=== PATIENT | female | born 1940 | race Caucasian/White ===

== ENCOUNTER 2019-10-11 03:25 | Inpatient (IN) ==
--- NOTE | 2019-10-09 16:14 | EKG Report ---
Test Performed on : 10/09/2019 3:32:47 PM Test Reason : PAT Blood Pressure : / mmHG Vent. Rate : 077 BPM Atrial Rate : 077 BPM P-R Int : 154 ms QRS Dur : 178 ms QT Int : 446 ms P-R-T Axes : 000 -86 078 degrees QTc Int : 504 ms AV dual-paced rhythm with premature atrial complexes. with aberrant conduction. Abnormal ECG No previous ECGs available Unconfirmed Result
[2019-10-09 16:25] LABS: URINE SOURCE CLEAN CATCH
[2019-10-09 16:45] LABS: BASO# 0.02 X1000 (0.0-0.2); BASO% 0.3 % (0.0-0.8); BILIRUBIN URINE NEGATIVE (NEGATIVE); BLOOD URINE NEGATIVE (NEGATIVE); COLOR YELLOW; EOS# 0.13 X1000 (0.0-0.7); EOS% 2.2 % (0.0-10.0); GLUCOSE URINE NEGATIVE (NEGATIVE); HEMATOCRIT 42.5 % (37.0-47.0); HEMOGLOBIN 13.4 g/dL (12.0-16.0); IMM GRAN# 0.02 X1000 (0.0-0.04); IMM GRAN% 0.3 % (0.0-0.5); KETONE URINE TRACE mg/dL (NEGATIVE); LEUKOCYTES URINE MODERATE (NEGATIVE); LYMPH# 2.32 X1000 (1.2-3.4); LYMPH% 39.4 % (20.5-51.1); MCH 27.8 PG (27-31); MCHC 31.5 g/dL (33-37); MCV 88.2 FL (81-99); MONO# 0.54 X1000 (0.11-0.59); MONO% 9.2 % (1.7-9.3); MPV 11.9 FL (7.4-10.4); NEUT# 2.86 X1000 (1.4-6.5); NEUT% 48.6 % (42.2-75.2); NITRITE URINE NEGATIVE (NEGATIVE); PH URINE 5.5; PLT 176 X1000 (130-400); PROTEIN URINE TRACE mg/dL (NEGATIVE); RBC 4.82 XMIL (4.2-5.4); RDW 14.9 % (11.5-14.5); TURBIDITY URINE CLEAR (CLEAR); UROBILINOGEN URINE 3 mg/dL (NORMAL); WBC 5.89 X1000 (4.8-10.8)
[2019-10-09 16:47] LABS: UR EPITHELIAL CELLS <10 /HPF (<10); URINE BACTERIA NEGATIVE /HPF; URINE RBC <10 /HPF (<10)
[2019-10-09 16:52] LABS: HEMOGLOBIN A1C 5.9 % (4.8-6.0); INR 1.01; PROTIME 13.4 Seconds (11.0-16.0); PTT 31.3 Seconds (22.3-41.8)
[2019-10-09 16:55] LABS: AGAP 11; BUN 18 mg/dL (8-22); CALCIUM 9.8 mg/dL (8.8-10.2); CHLORIDE 105 mmol/L (98-107); COSMO 286; CREATININE 0.9 mg/dL (0.5-0.9); ESTIMATED GFR > 60; GLUCOSE 82 mg/dL (70-104); POTASSIUM 4.5 mmol/L (3.5-5.1); SODIUM 143 mmol/L (136-145); TCO2 27 mmol/L (25-35)
[2019-10-11] MEDS ORDERED: PEPCID ONE (07:13)
[2019-10-11] MEDS ORDERED: REGLAN ONE (07:13)
[2019-10-11] MEDS ORDERED: COLACE ONE (07:13)
[2019-10-11] MEDS ORDERED: KEFZOL 1 GM/D5W 2 GM/100 ML IVPB ONE (07:14)
[2019-10-11] MEDS ORDERED: LR 1,000 ML ONE (07:14)
[2019-10-11] MEDS ORDERED: CELEBREX ONE (07:14)
[2019-10-11] MEDS ORDERED: LYRICA ONE (07:14)
[2019-10-11] MEDS ORDERED: TORADOL ONE (09:17)
[2019-10-11] MEDS ORDERED: MARCAINE 0.25% PF ONE (09:17)
[2019-10-11] MEDS ORDERED: ROBINUL ONE ×2 (09:17→10:50)
[2019-10-11] MEDS ORDERED: ZOFRAN ONE (09:17)
[2019-10-11] MEDS ORDERED: DURAMORPH ONE (09:17)
[2019-10-11] MEDS ORDERED: XYLOCAINE-MPF 2% ONE (09:17)
[2019-10-11] MEDS ORDERED: SODIUM CHLORIDE 0.9% ONE (09:17)
[2019-10-11] MEDS ORDERED: CYKLOKAPRON 1,000 MG/NS 1,000 MG/100 ML IVPB ONE (09:17)
[2019-10-11] MEDS ORDERED: EXPAREL 1.3% ONE (09:17)
[2019-10-11] MEDS ORDERED: DECADRON ONE (09:17)
[2019-10-11] MEDS ORDERED: DIPRIVAN 1% ONE (09:18)
[2019-10-11] MEDS ORDERED: FENTANYL ONE (09:18)
[2019-10-11] MEDS ORDERED: QUELICIN (DOSE) ONE (09:18)
[2019-10-11] MEDS ORDERED: ZEMURON ONE (10:12)
[2019-10-11] MEDS ORDERED: LABETALOL (DOSE) ONE (10:37)
[2019-10-11 10:40] LABS: URINE SOURCE CATH
[2019-10-11 10:49] LABS: BILIRUBIN URINE NEGATIVE (NEGATIVE); BLOOD URINE NEGATIVE (NEGATIVE); COLOR YELLOW; GLUCOSE URINE NEGATIVE (NEGATIVE); KETONE URINE NEGATIVE (NEGATIVE); LEUKOCYTES URINE NEGATIVE (NEGATIVE); NITRITE URINE NEGATIVE (NEGATIVE); PROTEIN URINE NEGATIVE (NEGATIVE); SP GRAVITY URINE 1.019; TURBIDITY URINE CLEAR (CLEAR); UR EPITHELIAL CELLS <10 /HPF (<10); URINE BACTERIA NEGATIVE /HPF; URINE RBC <10 /HPF (<10); URINE WBC <10 /HPF (<10); UROBILINOGEN URINE NORMAL (NORMAL)
[2019-10-11] MEDS ORDERED: NEOSTIGMINE ONE (10:50)
[2019-10-11] MEDS ORDERED: OFIRMEV 1000 MG/ISOTONIC SOLN 1,000 MG/100 ML BOTTLE ONE (11:02)
[2019-10-11] MEDS: MORPHINE ONE ×2 (11:50→12:00)
[2019-10-11] MEDS ORDERED: NS 1,000 ML ONE (11:56)
[2019-10-11] MEDS ORDERED: OXY IR ONE (12:06)
[2019-10-11] MEDS ORDERED: MORPHINE ONE ×2 (12:06→12:28)
--- NOTE | 2019-10-11 12:48 | Diag Imaging Result Doc PS360 ---
SHOULDER 1 VIEW LEFT - 10/11/2019 INDICATION: left TSA TECHNIQUE: COMPARISON: None FINDINGS: There has been left total shoulder arthroplasty. Alignment is anatomic. No hardware fracture or loosening. There is a left-sided pacemaker in good position. IMPRESSION: No complication. Electronically signed by Luisito Wylie 10/11/2019 12:46 PM
[2019-10-11] MEDS ORDERED: FLU VACCINE IM ONE (13:05)
[2019-10-11] MEDS ORDERED: MORPHINE IV PRN ×3 (13:15)
[2019-10-11] MEDS ORDERED: OXY IR PO PRN ×2 (13:15)
[2019-10-11] MEDS ORDERED: PNEUMOVAX 23 IM ONE (13:45)
[2019-10-11] MEDS ORDERED: ALDACTAZIDE 25/25 PO PRN (13:54)
[2019-10-11] MEDS ORDERED: CYKLOKAPRON 1,000 MG in NS 100 ML IV ONE (16:00)
[2019-10-11] MEDS: TYLENOL PO SCH (17:12)
[2019-10-11] MEDS: KEFZOL 2 GM/D5W 2 GM/50 ML IVPB IV SCH (17:12)
--- NOTE | 2019-10-11 17:30 | OPERATIVE NOTE ---
PROCEDURE DATE: 10/11/2019 PREOPERATIVE DIAGNOSIS: Left glenohumeral arthritis. POSTOPERATIVE DIAGNOSIS: Left glenohumeral arthritis. PROCEDURE: Left reverse shoulder arthroplasty, DePuy Delta Xtend size 12, press-fit stem, a 38 +6 humeral cup, and a 38 eccentric glenosphere, a 38+ 2 mm lateralized eccentric glenosphere and a standard metaglene. SURGEON: Solis Carlson MD. SHOE PARTS CASER: KAZ Lerma, who was necessary for proper retraction and manipulation of the extremity during the case. SECOND MARKETING AREA MANAGER: Farrukh Sibley RN. ANESTHESIA: General. INTRAVENOUS FLUIDS: 1400 mL lactated Ringer's. ESTIMATED BLOOD LOSS: 200 mL. COMPLICATIONS: None. INDICATION: A 79-year-old female with a chronic history of worsening pain and discomfort of the left shoulder. X-rays revealed significant arthritis and recommendation to proceed with left reverse shoulder arthroplasty was offered. Risks and benefits of surgery were explained, including the risks of anesthesia, , bleeding, infection, failure to relieve pain, postoperative stiffness, nerve injury, blood clots, and other imponderables. All questions were answered. The patient and family wished to proceed with surgery. DETAILS OF OPERATION: The patient was taken to the operating room and placed supine on the operating table. Once adequate anesthesia was obtained, patient was placed in a semi-[place]aj[place], beach-chair position. The left shoulder was subsequently prepped and draped in the usual sterile fashion. Standard deltopectoral incision was made with a skin knife. Hemostasis was obtained using electrocautery. The deltopectoral interval was then developed. Retractors were then placed. The clavipectoral fascia was elevated and Mendez retractor was placed deep to the conjoint tendon. The subscapularis tendon was then identified and stay sutures placed. Approximately 1 cm medial to the insertion was released. Attention was then turned to the shoulder. It was then dislocated anteriorly. Further release of the posterior-superior aspect of the rotator cuff was performed. After this had been performed, the starting reamer was then passed in the intramedullary canal. Sequential reaming was conducted up to a size 12. Intramedullary guide with a proximal humeral cutting block was pinned in position in approximately 15-20 degrees of retroversion. The humeral head was then resected. A protective disk was then placed. Attention was then turned to the glenoid and circumferential dissection was performed with a deep knife. A guide was then placed in position. Guidepin was then placed. Reaming was then conducted. A starting reamer was then passed. The intramedullary guidepin was then removed. The wound was copiously irrigated with antibiotic pulsatile lavage. A standard metaglene was then impacted in position. Two locking screws and 2 nonlocking screws were placed. Appeared to have good fixation. The wound was copiously irrigated once again. The 38 +2 mm lateralized eccentric glenosphere was then placed with the eccentricity placed inferiorly. Attention was then turned to the proximal humerus. Intramedullary guide was placed in position and proximal humerus was then reamed. Copious irrigation was then performed once again with antibiotic pulsatile lavage. A size 12 Delta Xtend press-fit stem was impacted in approximately 15-20 degrees of retroversion. The trial cup, size 38 +6 humeral cup, appeared to be the correct size. Trial cup was removed. The wound was copiously irrigated once again. A 38 +6 humeral cup was then placed. The shoulder was reduced, carried through a range of motion, had excellent stability and range of motion. Exparel was then placed in deep soft tissue. The wound was copiously with antibiotic pulsatile lavage. A #2 FiberWire was then used to repair the subscapularis tendon. Remaining Exparel was placed in deep soft tissue as well subcutaneous tissue. Irrigation was performed once again. A 2- 0 Vicryl was then used to repair subcutaneous tissue, followed by running 2-0 Prolene. Benzoin and Steri-Strips were applied. Adaptic, sterile 4 x 4, ABD pad, and tape were applied to the right shoulder, followed by shoulder immobilizer. All counts were correct. Patient tolerated the procedure well, transferred to the recovery room in stable condition. cc: Solis Carlson MD
[2019-10-11] MEDS ORDERED: HALL'S COUGH LOZENGE MT PRN (21:44)
[2019-10-11] MEDS: COLACE PO SCH (21:47)
[2019-10-11] MEDS: PERIDEX MT SCH (21:47)
[2019-10-11] MEDS: XALATAN 0.005% OPH SOLN BOTH EYES SCH (21:47)
[2019-10-11] MEDS: NS 1,000 ML IV SCH (21:48)
[2019-10-12] MEDS: KEFZOL 2 GM/D5W 2 GM/50 ML IVPB IV SCH (02:32)
[2019-10-12] MEDS: NS 1,000 ML IV SCH (03:00)
[2019-10-12] MEDS: OXY IR PO PRN ×5 (06:05→23:32)
[2019-10-12] MEDS: TYLENOL PO SCH ×5 (06:08→23:33)
[2019-10-12 06:46] LABS: HEMATOCRIT 36.6 % (37.0-47.0); HEMOGLOBIN 11.5 g/dL (12.0-16.0)
[2019-10-12 07:12] LABS: AGAP 13; BUN 16 mg/dL (8-22); CALCIUM 9.2 mg/dL (8.8-10.2); CHLORIDE 106 mmol/L (98-107); COSMO 290; CREATININE 0.9 mg/dL (0.5-0.9); ESTIMATED GFR > 60; GLUCOSE 126 mg/dL (70-104); POTASSIUM 5.3 mmol/L (3.5-5.1); SODIUM 144 mmol/L (136-145); TCO2 25 mmol/L (25-35)
[2019-10-12] MEDS: PERIDEX MT SCH ×2 (08:33→20:07)
[2019-10-12] MEDS: PRINIVIL PO SCH (08:35)
[2019-10-12] MEDS: COLACE PO SCH ×2 (08:35→20:07)
--- NOTE | 2019-10-12 12:08 | ORTHOPAEDICS PROGRESS NOTE ---
DATE: 10/12/2019 SUBJECTIVE: The patient is a pleasant 79-year-old female who is 1 day status post left reverse total shoulder arthroplasty. Patient is currently resting comfortably. She is complaining of a mild sore throat and some shoulder discomfort this morning. OBJECTIVE: On physical exam, the patient's left upper extremity dressing is intact. 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 Good capillary refill distally. LABS: Labs are pending. IMPRESSION: Postoperative day #1 status post left reverse total shoulder arthroplasty. PLAN: At this point, will begin mobilization with physical therapy. change her dressing and discontinue her Andrade and Hep-Lock her IV this morning. We will consult Scale Model Maker for discharge planning for evaluation for inpatient rehabilitation. All questions were answered. cc: Solis Carlson MD
[2019-10-12] MEDS: CRESTOR PO SCH (20:07)
[2019-10-12] MEDS: XALATAN 0.005% OPH SOLN BOTH EYES SCH (20:22)
[2019-10-13] MEDS: OXY IR PO PRN ×5 (03:15→20:32)
[2019-10-13 06:44] LABS: HEMATOCRIT 35.6 % (37.0-47.0); HEMOGLOBIN 11.3 g/dL (12.0-16.0)
[2019-10-13] MEDS: TYLENOL PO SCH ×3 (06:50→18:49)
[2019-10-13] MEDS: COLACE PO SCH ×2 (10:19→20:32)
[2019-10-13] MEDS: PERIDEX MT SCH ×2 (10:19→20:33)
[2019-10-13] MEDS: PRINIVIL PO SCH (10:19)
--- NOTE | 2019-10-13 12:56 | ORTHOPAEDICS PROGRESS NOTE ---
DATE: 10/13/2019 SUBJECTIVE: The patient is a 79-year-old female who is 2 days status post left reverse shoulder arthroplasty. Patient complains of some pain and discomfort in the left shoulder this morning. PHYSICAL EXAMINATION: Left upper extremity: Her wound looks good. There are no signs or symptoms of infection. She is neurovascularly distally. Able to flex all her fingers. 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 LABS: Pending. IMPRESSION: Postoperative day #1 status post left reverse shoulder arthroplasty. PLAN: At this point, patient will continue with physical therapy and await discharge planning for rehab. cc: Solis Carlson MD
[2019-10-13] MEDS: XALATAN 0.005% OPH SOLN BOTH EYES SCH (20:32)
[2019-10-13] MEDS: ZOFRAN PO PRN (20:32)
[2019-10-14] MEDS: TYLENOL PO SCH ×4 (00:57→17:32)
[2019-10-14 07:23] LABS: HEMATOCRIT 35.3 % (37.0-47.0)
[2019-10-14] MEDS: COLACE PO SCH ×2 (08:00→22:10)
[2019-10-14] MEDS: PERIDEX MT SCH ×2 (08:00→22:10)
[2019-10-14] MEDS: PRINIVIL PO SCH (08:00)
--- NOTE | 2019-10-14 15:53 | ORTHOPAEDICS PROGRESS NOTE ---
DATE: 10/14/2019 SUBJECTIVE: Ms. Trinh lying in bed this morning. She is feeling really well. Not really complaining of a lot of pain. She has been up walking. OBJECTIVE: Left upper extremity exam, her dressing is clean, dry, and intact. All her hand intrinsics are intact. ASSESSMENT: Status post left total shoulder replacement. PLAN: I think Ms. Trinh is doing great. She is up moving. She is planning on going to rehab on Wednesday. We will continue to follow over the weekend. cc: MD Solis Mccormack MD
[2019-10-14] MEDS: XALATAN 0.005% OPH SOLN BOTH EYES SCH (22:09)
[2019-10-14] MEDS: OXY IR PO PRN (22:09)
[2019-10-14] MEDS: CRESTOR PO SCH (22:10)
[2019-10-15] MEDS: TYLENOL PO SCH ×5 (00:13→17:32)
[2019-10-15] MEDS: OXY IR PO PRN ×2 (02:12→16:11)
[2019-10-15] MEDS: PERIDEX MT SCH (08:22)
[2019-10-15] MEDS: PRINIVIL PO SCH (08:22)
[2019-10-15] MEDS: COLACE PO SCH (08:22)
[2019-10-15] MEDS ORDERED: MILK OF MAGNESIA PO PRN (09:08)
[2019-10-15] MEDS: ZOFRAN PO PRN (12:00)
--- NOTE | 2019-10-15 14:33 | ORTHOPAEDICS PROGRESS NOTE ---
DATE: 10/15/2019 SUBJECTIVE: Ms Trinh sitting up in bedside chair this morning, overall feeling well from a pain standpoint. She has had a little problems moving her bowels. OBJECTIVE: Left upper extremity exam her dressing is clean, dry, and intact. She remains neurovascularly intact left upper extremity. ASSESSMENT: Status post left reverse total shoulder arthroplasty. PLAN: Ms. Trinh is doing great from a shoulder standpoint. Unfortunately her bowels have not moved well. She is passing gas from below. We are going to get her on a bowel regime today. I discussed with her about plenty of hydration and walking around to help stimulate her bowels and will continue to monitor. cc: MD Solis Mccormack MD MTDD
[2019-10-16] MEDS: COLACE PO SCH ×2 (00:31→09:58)
[2019-10-16] MEDS: PERIDEX MT SCH ×2 (00:32→09:58)
[2019-10-16] MEDS: TYLENOL PO SCH ×2 (00:32→05:16)
[2019-10-16] MEDS: XALATAN 0.005% OPH SOLN BOTH EYES SCH (00:32)
[2019-10-16 07:25] VITALS: BP 120/73
--- NOTE | 2019-10-16 09:06 | DISCHARGE SUMMARY ---
ADMISSION DATE: 10/11/2019 DISCHARGE DATE: 10/16/2019 ADMITTING DIAGNOSIS: Left shoulder osteoarthritis. DISCHARGE DIAGNOSIS: Left shoulder osteoarthritis, status post left reverse total shoulder arthroplasty. PROCEDURES: On 10/11/2019, Dr. Carlson performed a left reverse total shoulder arthroplasty. HOSPITAL COURSE: Ms. Trinh is a 79-year-old female with a past medical history of high blood pressure, high cholesterol, and a pacemaker. She has had worsening pain and discomfort with her left shoulder for some time now. X-rays revealed significant degenerative changes and a large osteophyte off the humeral head. Dr. Carlson discussed doing a left reverse total shoulder arthroplasty, and Ms. Trinh wished to proceed at this time. She was taken to the operating room, where satisfactory anesthesia was obtained. She tolerated the procedure well, and was transferred to the recovery room. After satisfactory recovery, she was transferred to [address] [place] [address]. She has had an uneventful postoperative course. She did have some difficulty with her bowels moving, but this has since resolved. She says that she has been working with Physical Therapy on range of motion exercises of her elbow, wrist, and hands. She has had only mild discomfort in her left shoulder. Her pain has been well controlled here. Ms. Trinh does live by herself, and has no one to transport her to outpatient physical therapy. Because of this, it was decided that she would be best suited for an inpatient rehab stay. She has opted to be admitted to [facility], which is affiliated with [facility]. Her bed is available today, and she is stable to be discharged there. She has been walking well while in the hospital, and has had no difficulty with mobilizing. At this time, she is ready for discharge. VITAL SIGNS: Temp 98.8 degrees, heart rate 68, respirations 18, blood pressure is 120/73, and her oxygen is 95% on room air. DISCHARGE LABORATORY DATA: Hemoglobin and hematocrit have remained steady at 11 and 35.3. Her BUN and creatinine are 16 and 0.9, which have remained steady throughout her hospital course. DISCHARGE MEDICATIONS: Colace 100 mg p.o. b.i.d., latanoprost ophthalmic drops 1 drop to both eyes at bedtime, lisinopril 10 mg p.o. daily, milk of magnesium 30 mL p.o. daily p.r.n., Zofran 4 mg p.o. every 6 hours p.r.n., Oxy IR 5 mg 1 to 2 tablets p.o. every 4 hours p.r.n., and spironolactone/hydrochlorothiazide 25/25 mg p.o. daily p.r.n. DISCHARGE DISPOSITION: Ms. Trinh will be going to [facility], which is affiliated with [facility]. She is going to continue to work on mobilization of her left arm, including her left shoulder. She is going to follow up in office once she is discharged from rehab, which should be about 3 to 4 weeks from now. Her sutures are to come out on 10/23/2019. I did discuss signs and symptoms of postoperative infection with Ms. Trinh, and she is to call the office if these occur. They can do incision care daily with her. She can shower, but no baths. She is to keep her surgical incision clean and dry. She will not require any DVT prophylaxis. If she has any questions or concerns, she can call the office. Dictated by KAZ Zavaleta for Solis Carlson MD cc: Solis Carlson MD
[2019-10-16] MEDS: PRINIVIL PO SCH (09:58)
[2019-10-16] MEDS: OXY IR PO PRN (11:19)
== END 2019-10-16 11:41 | DRG 483 ==
LOC: SURHOLD 03:25 → 4N 11:56
PROVIDERS: ADMIT Orthopaedic Surgery Adult Reconstructive Orthopaedic Surgery; ATTEND Orthopaedic Surgery Adult Reconstructive Orthopaedic Surgery